=== PATIENT | male | born 1930 | race Caucasian/White ===

== ENCOUNTER 2017-10-22 18:35 | Inpatient (IN) | payer MEDICARE, OTHER ==
[~2017-10-22] VITALS: Ht 160 cm; Wt 71.7 kg
[2017-10-22] MEDS ORDERED: Z GUARD REMEDY PASTE 57 GM TUBE TOP PRN (18:45)
[2017-10-22] MEDS ORDERED: MAGNESIUM HYDROXIDE 30 ML LIQUID UDC PO PRN ×2 (18:45→22:30)
[2017-10-22] MEDS ORDERED: ONDA4VIA30 IVP (19:06)
[2017-10-22] MEDS ORDERED: LACT1CAP57 PO (19:06)
[2017-10-22] MEDS ORDERED: HYDR-552 PO (19:06)
[2017-10-22] MEDS ORDERED: ALBU2.5V7 NEB (19:06)
[2017-10-22] MEDS ORDERED: AZIT500T PO (19:06)
[2017-10-22] MEDS ORDERED: MAGN400O6 PO (19:06)
[2017-10-22] MEDS ORDERED: OSEL75CA PO (19:06)
[2017-10-22] MEDS ORDERED: ACET-2154 PO (19:06)
[2017-10-22] MEDS ORDERED: ZOLP5TAB8 PO (19:06)
[2017-10-22] MEDS ORDERED: CEFT1VIA15 IV (19:06)
[2017-10-22] MEDS ORDERED: RIVA15TA PO (19:06)
[2017-10-22] MEDS ORDERED: CARB-93 PO (19:06)
[2017-10-22] MEDS ORDERED: METO25TA6 PO (19:06)
[2017-10-22] MEDS ORDERED: IPRA0.2S6 NEB (19:06)
[2017-10-22] MEDS ORDERED: HYDR-4075 IVP (19:06)
[2017-10-22 20:34] VITALS: BP 119/71
[2017-10-22] MEDS ORDERED: ACETAMINOPHEN 325 MG TABLET PO PRN (22:30)
[2017-10-22] MEDS ORDERED: HYDROCODONE/APAP 5-325MG TABLET PO PRN (22:30)
[2017-10-22] MEDS ORDERED: IPRATROPIUM BROMIDE 0.5 MG/2.5 ML NEBU NEB PRN (22:30)
[2017-10-22] MEDS ORDERED: ZOLPIDEM 5 MG TABLET PO PRN (22:30)
[2017-10-23] MEDS ORDERED: CEFTRIAXONE 1 G VIAL ONE (00:16)
[2017-10-23] MEDS: CEFTRIAXONE 1 G in IV DEXTROSE 5% 50 ML IV SCH ×2 (00:39→10:03)
[2017-10-23 08:00] VITALS: BP 135/84
[2017-10-23 08:42] LABS: BASOPHILS % (AUTO) 0.4 % (0.0-2.0); EOSINOPHILS # (AUTO) 0.1 K/uL (0.0-0.7); EOSINOPHILS % (AUTO) 2.4 % (0.0-7.0); HEMATOCRIT 42.7 % (36.7-47.1); HEMOGLOBIN 14.2 g/dL (12.5-16.3); LYMPHOCYTES # (AUTO) 3.3 K/uL (20.0-40.0); LYMPHOCYTES % (AUTO) 53.2 % (20.5-51.5); MEAN CORPUSCULAR HEMOGLOBIN 31.3 uug (23.8-33.4); MEAN CORPUSCULAR HGB CONC 33 g/dL (32.5-36.3); MEAN CORPUSCULAR VOLUME 94.3 fL (73.0-96.2); MONOCYTES % (AUTO) 15.8 % (0.0-11.0); NEUTROPHILS # (AUTO) 1.8 K/uL (1.8-8.9); NEUTROPHILS % (AUTO) 28.2 % (38.5-71.5); PLATELET COUNT (AUTO) 163 K/uL (152-348); RED BLOOD CELL COUNT(AUTO) 4.53 MIL/uL (4.06-5.63); WHITE BLOOD COUNT (AUTO) 6.2 K/uL (3.6-10.2)
[2017-10-23] MEDS: FAMOTIDINE 20 MG TABLET PO SCH (09:17)
[2017-10-23] MEDS: CARBIDOPA/LEVODOPA 25-100MG TABLET PO SCH ×3 (09:18→17:28)
[2017-10-23] MEDS: LACTOBACILLUS RHAMNOSUS GG 1 EACH CAPSULE PO SCH ×2 (09:18→17:28)
[2017-10-23] MEDS: METOPROLOL TARTRATE 25 MG TABLET PO SCH ×2 (09:18→21:17)
[2017-10-23] MEDS: OSELTAMIVIR PHOSPHATE 75 MG CAPSULE PO SCH ×2 (09:18→17:28)
[2017-10-23 09:49] LABS: ALANINE AMINOTRANSFERASE 84 U/L (16-63); ALKALINE PHOSPHATASE 56 U/L (50-136); ASPARTATE AMINOTRANSFERASE 89 U/L (15-37); BILIRUBIN,TOTAL 0.3 mg/dL (0.2-1.0); CARBON DIOXIDE 30 mmol/L (21-32); CHLORIDE 101 mmol/L (98-107); CHOLESTEROL 107 mg/dL (<200); CREATININE 1.4 mg/dL (0.6-1.3); GLUCOSE 96 mg/dL (74-106); HDL CHOLESTEROL 41 mg/dL (40-60); MAGNESIUM 2.4 mg/dL (1.8-2.4); PHOSPHOROUS 3.4 mg/dL (2.5-4.9); POTASSIUM 4.2 mmol/L (3.5-5.1); TOTAL PROTEIN, SERUM 7.5 g/dL (6.4-8.2); TRIGLYCERIDES 89 MG/DL (30-150); UREA NITROGEN, BLOOD 45 mg/dL (7-18)
[2017-10-23 10:11] LABS: EOSINOPHILS % (MANUAL) 3 % (0-8); LYMPHOCYTES % (MANUAL) 58 % (20-40); MONOCYTES % (MANUAL) 11 % (2-10); NEUTROPHILS % (MANUAL) 28 % (42-75)
[2017-10-23] MEDS: AZITHROMYCIN 250 MG TABLET PO SCH (13:05)
[2017-10-23] MEDS: RIVAROXABAN 15 MG TABLET PO SCH (17:27)
[2017-10-23 19:30] VITALS: BP 147/87
[2017-10-23] MEDS: ALBUTEROL SULFATE 2.5 MG/3 ML NEBU NEB PRN (20:00)
[2017-10-24 07:30] VITALS: BP 141/66
[2017-10-24] MEDS: CARBIDOPA/LEVODOPA 25-100MG TABLET PO SCH ×3 (09:00→18:24)
[2017-10-24] MEDS: OSELTAMIVIR PHOSPHATE 75 MG CAPSULE PO SCH ×2 (09:00→18:24)
[2017-10-24] MEDS: LACTOBACILLUS RHAMNOSUS GG 1 EACH CAPSULE PO SCH ×2 (09:00→18:24)
[2017-10-24] MEDS: FAMOTIDINE 20 MG TABLET PO SCH (09:00)
[2017-10-24] MEDS: AZITHROMYCIN 250 MG TABLET PO SCH (09:00)
[2017-10-24] MEDS: CEFTRIAXONE 1 G in IV DEXTROSE 5% 50 ML IV SCH (09:01)
[2017-10-24] MEDS: METOPROLOL TARTRATE 25 MG TABLET PO SCH ×2 (09:01→20:00)
[2017-10-24 18:23] LABS: *BILIRUBIN,URIN NEGATIVE (NEGATIVE); *BLOOD, URINE Trace-intact (NEGATIVE); *CLARITY,URINE CLEAR (CLEAR); *COLOR,URINE YELLOW (YELLOW); *KETONES,URINE NEGATIVE (NEGATIVE); *PROTEIN,URINE 1+ (NEGATIVE); *UROBILINOGEN,URINE 0.2 E.U./dl (NORMAL); LEUKOCYTE ESTERASE ,URINE NEGATIVE (NEGATIVE); NITRITE, URINE NEGATIVE (NEGATIVE); PH,URINE 5.5 (5.0-8.0); UGLUCOSE NEGATIVE (NEGATIVE)
[2017-10-24] MEDS: RIVAROXABAN 15 MG TABLET PO SCH (18:23)
[2017-10-24 18:24] LABS: BACTERIA,URINE FEW /HPF (NONE SEEN); RBC,URINE 0-3 /HPF (0-3); SQUAMOUS EPITHELIAL CELL,UR FEW /HPF (NONE SEEN); WBC,URINE 0-3 /HPF (0-3)
[2017-10-24 18:30] LABS: *CREATININE,URINE 131.7 mg/dL (30-125); *URINE TOTAL PROTEIN RANDOM 69.3 mg/dL (<150/24HR)
[2017-10-24 20:00] VITALS: BP 127/80
[2017-10-24] MEDS: ALBUTEROL SULFATE 2.5 MG/3 ML NEBU NEB PRN (23:50)
[2017-10-25 08:13] LABS: CARBON DIOXIDE 32 mmol/L (21-32); CHLORIDE 101 mmol/L (98-107); CREATININE 1.4 mg/dL (0.6-1.3); GLUCOSE 95 mg/dL (74-106); POTASSIUM 4.2 mmol/L (3.5-5.1); UREA NITROGEN, BLOOD 32 mg/dL (7-18)
[2017-10-25] MEDS: CARBIDOPA/LEVODOPA 25-100MG TABLET PO SCH ×3 (08:50→18:36)
[2017-10-25] MEDS: LACTOBACILLUS RHAMNOSUS GG 1 EACH CAPSULE PO SCH ×2 (08:50→18:35)
[2017-10-25] MEDS: OSELTAMIVIR PHOSPHATE 75 MG CAPSULE PO SCH (08:50)
[2017-10-25] MEDS: AZITHROMYCIN 250 MG TABLET PO SCH (08:50)
[2017-10-25] MEDS: FAMOTIDINE 20 MG TABLET PO SCH (08:51)
[2017-10-25] MEDS: METOPROLOL TARTRATE 25 MG TABLET PO SCH ×2 (08:51→21:34)
[2017-10-25] MEDS: CEFTRIAXONE 1 G in IV DEXTROSE 5% 50 ML IV SCH (09:42)
[2017-10-25] MEDS: RIVAROXABAN 15 MG TABLET PO SCH (18:37)
[2017-10-25 19:30] VITALS: BP 158/81
[2017-10-26 07:57] LABS: ALANINE AMINOTRANSFERASE 50 U/L (16-63); ALKALINE PHOSPHATASE 55 U/L (50-136); ASPARTATE AMINOTRANSFERASE 41 U/L (15-37); BILIRUBIN,TOTAL 0.6 mg/dL (0.2-1.0); CARBON DIOXIDE 30 mmol/L (21-32); CHLORIDE 99 mmol/L (98-107); CREATININE 1.4 mg/dL (0.6-1.3); GLUCOSE 96 mg/dL (74-106); POTASSIUM 4.2 mmol/L (3.5-5.1); UREA NITROGEN, BLOOD 33 mg/dL (7-18)
[2017-10-26 09:06] VITALS: BP 143/94
[2017-10-26] MEDS: LACTOBACILLUS RHAMNOSUS GG 1 EACH CAPSULE PO SCH ×2 (09:51→17:46)
[2017-10-26] MEDS: CARBIDOPA/LEVODOPA 25-100MG TABLET PO SCH ×3 (09:51→17:46)
[2017-10-26] MEDS: FAMOTIDINE 20 MG TABLET PO SCH (09:51)
[2017-10-26] MEDS: METOPROLOL TARTRATE 25 MG TABLET PO SCH ×2 (09:51→20:56)
[2017-10-26] MEDS: RIVAROXABAN 15 MG TABLET PO SCH (17:52)
[2017-10-26 19:54] VITALS: BP 110/59
[2017-10-27 08:08] VITALS: BP 138/85
[2017-10-27] MEDS: FAMOTIDINE 20 MG TABLET PO SCH (08:26)
[2017-10-27] MEDS: CARBIDOPA/LEVODOPA 25-100MG TABLET PO SCH ×3 (08:26→18:04)
[2017-10-27] MEDS: LACTOBACILLUS RHAMNOSUS GG 1 EACH CAPSULE PO SCH ×2 (08:26→18:04)
[2017-10-27] MEDS: METOPROLOL TARTRATE 25 MG TABLET PO SCH ×2 (08:27→20:52)
[2017-10-27] MEDS: RIVAROXABAN 15 MG TABLET PO SCH (17:00)
[2017-10-27 20:28] VITALS: BP 135/83
[2017-10-28 07:31] VITALS: BP 139/81
[2017-10-28] MEDS: FAMOTIDINE 20 MG TABLET PO SCH (08:48)
[2017-10-28] MEDS: LACTOBACILLUS RHAMNOSUS GG 1 EACH CAPSULE PO SCH ×2 (08:48→17:16)
[2017-10-28] MEDS: CARBIDOPA/LEVODOPA 25-100MG TABLET PO SCH ×3 (08:48→17:16)
[2017-10-28] MEDS: METOPROLOL TARTRATE 25 MG TABLET PO SCH ×2 (08:48→21:05)
[2017-10-28] MEDS: RIVAROXABAN 15 MG TABLET PO SCH (17:19)
[2017-10-28 20:48] VITALS: BP 123/71
[2017-10-29 08:01] VITALS: BP 124/88
[2017-10-29] MEDS: CARBIDOPA/LEVODOPA 25-100MG TABLET PO SCH ×3 (09:21→17:45)
[2017-10-29] MEDS: FAMOTIDINE 20 MG TABLET PO SCH (09:21)
[2017-10-29] MEDS: LACTOBACILLUS RHAMNOSUS GG 1 EACH CAPSULE PO SCH ×2 (09:21→17:45)
[2017-10-29] MEDS: METOPROLOL TARTRATE 25 MG TABLET PO SCH ×2 (09:21→20:39)
[2017-10-29] MEDS: RIVAROXABAN 15 MG TABLET PO SCH (17:47)
[2017-10-29 20:00] VITALS: BP 114/70
[2017-10-30 08:31] VITALS: BP 138/84
[2017-10-30] MEDS: CARBIDOPA/LEVODOPA 25-100MG TABLET PO SCH ×3 (08:58→16:31)
[2017-10-30] MEDS: LACTOBACILLUS RHAMNOSUS GG 1 EACH CAPSULE PO SCH ×2 (08:58→16:31)
[2017-10-30] MEDS: FAMOTIDINE 20 MG TABLET PO SCH (08:58)
[2017-10-30] MEDS: METOPROLOL TARTRATE 25 MG TABLET PO SCH ×2 (08:59→20:16)
[2017-10-30] MEDS: RIVAROXABAN 15 MG TABLET PO SCH (16:33)
[2017-10-30 19:30] VITALS: BP 136/75
[2017-10-31 08:00] VITALS: BP 144/85
[2017-10-31] MEDS: METOPROLOL TARTRATE 25 MG TABLET PO SCH ×2 (08:23→20:29)
[2017-10-31] MEDS: CARBIDOPA/LEVODOPA 25-100MG TABLET PO SCH ×3 (08:23→16:34)
[2017-10-31] MEDS: LACTOBACILLUS RHAMNOSUS GG 1 EACH CAPSULE PO SCH ×2 (08:23→16:34)
[2017-10-31] MEDS: FAMOTIDINE 20 MG TABLET PO SCH (08:23)
[2017-10-31] MEDS: RIVAROXABAN 10 MG TABLET PO SCH (16:35)
[2017-10-31 21:43] VITALS: BP 133/87
[2017-11-01 08:00] VITALS: BP 150/82
[2017-11-01] MEDS: METOPROLOL TARTRATE 25 MG TABLET PO SCH ×2 (08:28→20:55)
[2017-11-01] MEDS: FAMOTIDINE 20 MG TABLET PO SCH (08:28)
[2017-11-01] MEDS: LACTOBACILLUS RHAMNOSUS GG 1 EACH CAPSULE PO SCH ×2 (08:28→16:05)
[2017-11-01] MEDS: CARBIDOPA/LEVODOPA 25-100MG TABLET PO SCH ×3 (08:28→16:05)
[2017-11-01] MEDS: RIVAROXABAN 10 MG TABLET PO SCH (16:08)
[2017-11-01 20:07] VITALS: BP 127/69
[2017-11-02 08:19] VITALS: BP 159/83
[2017-11-02] MEDS: CARBIDOPA/LEVODOPA 25-100MG TABLET PO SCH ×3 (09:44→17:54)
[2017-11-02] MEDS: LACTOBACILLUS RHAMNOSUS GG 1 EACH CAPSULE PO SCH ×2 (09:44→17:54)
[2017-11-02] MEDS: FAMOTIDINE 20 MG TABLET PO SCH (09:44)
[2017-11-02] MEDS: METOPROLOL TARTRATE 25 MG TABLET PO SCH ×2 (09:45→20:07)
[2017-11-02] MEDS: RIVAROXABAN 15 MG TABLET PO SCH (17:55)
[2017-11-02 19:30] VITALS: BP 129/72
[2017-11-03 08:26] VITALS: BP 145/88
[2017-11-03] MEDS: LACTOBACILLUS RHAMNOSUS GG 1 EACH CAPSULE PO SCH ×2 (09:45→16:19)
[2017-11-03] MEDS: CARBIDOPA/LEVODOPA 25-100MG TABLET PO SCH ×3 (09:45→16:19)
[2017-11-03] MEDS: FAMOTIDINE 20 MG TABLET PO SCH (09:46)
[2017-11-03] MEDS: METOPROLOL TARTRATE 25 MG TABLET PO SCH ×2 (09:46→20:41)
[2017-11-03] MEDS: RIVAROXABAN 15 MG TABLET PO SCH (16:21)
[2017-11-03 20:17] VITALS: BP 116/68
[2017-11-04 08:56] VITALS: BP 156/86
[2017-11-04] MEDS: FAMOTIDINE 20 MG TABLET PO SCH (09:16)
[2017-11-04] MEDS: LACTOBACILLUS RHAMNOSUS GG 1 EACH CAPSULE PO SCH ×2 (09:16→17:47)
[2017-11-04] MEDS: CARBIDOPA/LEVODOPA 25-100MG TABLET PO SCH ×3 (09:16→17:47)
[2017-11-04] MEDS: METOPROLOL TARTRATE 25 MG TABLET PO SCH ×2 (09:17→20:39)
[2017-11-04] MEDS: RIVAROXABAN 15 MG TABLET PO SCH (17:50)
[2017-11-04 20:16] VITALS: BP 147/86
[2017-11-05 07:45] VITALS: BP 148/72
[2017-11-05] MEDS: CARBIDOPA/LEVODOPA 25-100MG TABLET PO SCH ×3 (09:18→16:49)
[2017-11-05] MEDS: LACTOBACILLUS RHAMNOSUS GG 1 EACH CAPSULE PO SCH ×2 (09:18→16:49)
[2017-11-05] MEDS: FAMOTIDINE 20 MG TABLET PO SCH (09:19)
[2017-11-05] MEDS: METOPROLOL TARTRATE 25 MG TABLET PO SCH ×2 (09:19→20:23)
[2017-11-05] MEDS: RIVAROXABAN 15 MG TABLET PO SCH (16:49)
[2017-11-05] MEDS: GABAPENTIN 300 MG CAPSULE PO SCH (20:22)
[2017-11-05 20:43] VITALS: BP 130/80
[2017-11-06 07:00] VITALS: BP 131/77
[2017-11-06] MEDS: LACTOBACILLUS RHAMNOSUS GG 1 EACH CAPSULE PO SCH ×2 (09:02→17:28)
[2017-11-06] MEDS: METOPROLOL TARTRATE 25 MG TABLET PO SCH ×2 (09:03→20:47)
[2017-11-06] MEDS: CARBIDOPA/LEVODOPA 25-100MG TABLET PO SCH ×3 (09:03→17:28)
[2017-11-06] MEDS: FAMOTIDINE 20 MG TABLET PO SCH (09:03)
[2017-11-06] MEDS: RIVAROXABAN 15 MG TABLET PO SCH (17:34)
[2017-11-06 19:30] VITALS: BP 113/67
[2017-11-06] MEDS: GABAPENTIN 300 MG CAPSULE PO SCH (20:37)
[2017-11-07 07:00] VITALS: BP 143/70
[2017-11-07 08:42] VITALS: BP 143/70
[2017-11-07] MEDS: METOPROLOL TARTRATE 25 MG TABLET PO SCH (08:42)
[2017-11-07] MEDS: FAMOTIDINE 20 MG TABLET PO SCH (08:43)
[2017-11-07] MEDS: CARBIDOPA/LEVODOPA 25-100MG TABLET PO SCH (08:43)
[2017-11-07] MEDS: LACTOBACILLUS RHAMNOSUS GG 1 EACH CAPSULE PO SCH (08:43)
== END 2017-11-07 11:55 | disposition home health service (06) | DRG 56 ==
PROVIDERS: ADMIT Physical Medicine & Rehabilitation Pain Medicine; ATTEND Physical Medicine & Rehabilitation Pain Medicine
DX: G20 Parkinson's disease (principal); J10.00 Influenza due to other identified influenza virus with unspecified type of pneumonia; I13.0 Hypertensive heart and chronic kidney disease with heart failure and stage 1 through stage 4 chronic kidney disease, or unspecified chronic kidney disease; G62.9 Polyneuropathy, unspecified; I50.32 Chronic diastolic (congestive) heart failure; D64.9 Anemia, unspecified; I45.2 Bifascicular block; E66.9 Obesity, unspecified; Z68.28 Body mass index [BMI] 28.0-28.9, adult; E78.5 Hyperlipidemia, unspecified; I70.0 Atherosclerosis of aorta; I73.9 Peripheral vascular disease, unspecified; N18.9 Chronic kidney disease, unspecified; M89.9 Disorder of bone, unspecified; J32.0 Chronic maxillary sinusitis; R73.03 Prediabetes; Z87.891 Personal history of nicotine dependence; N28.1 Cyst of kidney, acquired; M19.90 Unspecified osteoarthritis, unspecified site; R26.2 Difficulty in walking, not elsewhere classified; J40 Bronchitis, not specified as acute or chronic; R53.1 Weakness; R20.8 Other disturbances of skin sensation
CPT/HCPCS: 36415; 70030-TC; 71045; 82306; 83735; 84100; 84156; 84300; 84443; 85025; 92526; 92610; 94640; 94664; 97110; 97112; 97116; 97530; 97535; A4663; J0696; J3590; J7050; J7060; Q0144